=== PATIENT | male | born 1975 | race Caucasian/White ===

== ENCOUNTER 2016-08-03 13:06 | Emergency (ER) | payer SELFPAY ==
[~2016-08-03] VITALS: Ht 172.7 cm; Wt 90.9 kg
[2016-08-03 13:19] VITALS: BP 0/0
[2016-08-03] MEDS ORDERED: EPINEPHrine 1:10,000 [1 MG/10 ML] SYRINGE IVP ONE (23:00)
== END 2016-08-03 16:40 | disposition expired ==
LOC: EDBD 13:08 → EMS 13:08
DX: I46.9 Cardiac arrest, cause unspecified (principal); F12.90 Cannabis use, unspecified, uncomplicated
CPT/HCPCS: 31500; 92950; 99285; J0171